=== PATIENT | male | born 1930 | race Caucasian/White ===

== ENCOUNTER 2016-07-06 06:37 | Day surgery (SDC) | payer MEDICARE, OTHER, MEDICAID ==
[~2016-07-06] VITALS: Ht 188.1 cm; Wt 115.9 kg
[2016-07-06] VITALS (10 sets, daily range): BP systolic 131–180; BP diastolic 83–105; PULSE 60–73; TEMP 97.7
[~2016-07-06 06:37] MED LIST: ALBUTEROL0.83 MG/ML IH; AMARYL 2MG T2 MG/TAB PO; ASPIRIN 81M81 MG/TA2 PO; ASPIRIN E.C. 8181 MG PO; CO ENZYME Q-1050 MG PO; COUMADIN 1MG1 MG/TAB PO; COUMADIN 3MG3 MG/TAB PO; COUMADIN 5MG5 MG/TAB PO; DIABETA 5MG5 MG/TAB PO; GLUCOPHAGE500 MG/TAB PO; HCTZ 25MG TAB25 MG PO; HCTZ 25MG25 MG PO; HYTRIN PO; HYTRIN10 M1 PO; K-DUR 2020 MEQ PO; LEVAQUIN 750MG750 M1 PO; NASONEX SPRAY17 GM NS; PERC2.5TAB PO; PERCOCET 325 MG1 TA2 PO; PROSCAR 5MG5 MG PO; TYLENOL 325MG325 MG PO; ULTRAM 50MG TAB50 MG PO; VITAMIN B-1000 MCG/T PO; ZEBETA 5MG5 MG PO; ZEBETA10 MG PO; ZESTRIL 10MG10 MG PO; ZIAC 5/6.25MG T1 TAB PO
[2016-07-06 07:43] LABS: HEMOGLOBIN 12.2 g/dl (13.5-18.0); MEAN CELL VOLUME 95 fl (80.0-100.0); MEAN CORPUSCULAR HEMOGLOBIN 31 pg (27.0-31.0); MEAN CORPUSCULAR HGB CONC 33 g/dl (33.0-37.0); MEAN PLATELET VOLUME 9.7 fl (7.4-10.4); PLATELET COUNT 177 K/mm3 (130-400); RED BLOOD COUNT 3.88 M/mm3 (4.20-5.60); REDCELL DISTRIBUTION WIDTH-CV 13.4 % (11.5-14.5); WHITE BLOOD COUNT 6.1 K/mm3 (4.8-10.8)
[2016-07-06 07:53] LABS: INR 1.1 (0.8-3.0)
[2016-07-06 07:54] LABS: CALCIUM 8.8 mg/dL (8.4-10.2); CREATININE, serum 0.96 mg/dL (0.66-1.25); POTASSIUM 3.5 mmol/L (3.4-5.0)
[2016-07-06 07:57] LABS: HEMATOCRIT 36.9 % (42.0-52.0)
[2016-07-06] MEDS ORDERED: LASIX 20MG TABL20 MG PO (08:02)
[2016-07-06] MEDS ORDERED: LASIX 40MG TABL40 MG PO (08:03)
[2016-07-06] MEDS ORDERED: FLOMAX 0.40.4 MG/CAP PO (08:06)
[2016-07-06] MEDS ORDERED: SENOKOT S 50 MG1 TAB PO (08:07)
[2016-07-06] MEDS ORDERED: NOVOLOG FLEX100 U/ML SQ ×3 (08:23→08:25)
[2016-07-06] MEDS ORDERED: LEVEMIR100 U/ML SQ (08:26)
[2016-07-06] MEDS ORDERED: CEPHALEXIN500 M1 PO (10:26)
== END 2016-07-06 12:30 | disposition home or self-care (01) ==
LOC: COL.CAR 06:37
PROVIDERS: Internal Medicine Cardiovascular Disease
DX: Z45.02 Encounter for adjustment and management of automatic implantable cardiac defibrillator (principal); I42.8 Other cardiomyopathies; I10 Essential (primary) hypertension; E78.5 Hyperlipidemia, unspecified; E11.9 Type 2 diabetes mellitus without complications; I34.0 Nonrheumatic mitral (valve) insufficiency; Z86.718 Personal history of other venous thrombosis and embolism; Z79.01 Long term (current) use of anticoagulants; J44.9 Chronic obstructive pulmonary disease, unspecified; Z86.73 Personal history of transient ischemic attack (TIA), and cerebral infarction without residual deficits
CPT/HCPCS: C1882; J0690; J3010